=== PATIENT | female | born 1970 | race Caucasian/White ===

== ENCOUNTER 2016-07-14 11:52 | Emergency (ER) | payer MEDICAID, OTHER ==
[~2016-07-14] VITALS: Ht 167.6 cm; Wt 132.3 kg
[~2016-07-14 11:52] MED LIST: GABA400C5 PO; PERC7.5T13 PO; PROT40TA PO; RIVA15 PO; RIVA20 PO
[2016-07-14 11:58] VITALS: BP 140/86; PULSE 73; RESP 16; TEMP 98.2; O2SAT 97
[2016-07-14] MEDS ORDERED: XARE20TA PO (12:12)
[2016-07-14] MEDS ORDERED: PANT40TA3 PO (12:12)
[2016-07-14] MEDS ORDERED: GABA800T PO (12:12)
[2016-07-14] MEDS ORDERED: ALPR0.25 PO (12:12)
--- NOTE | 2016-07-14 12:14 | PD ---
HPI Chief Complaint: Musculoskeletal Complaint Time Seen by Provider: 12:13 Travel History International Travel<30 days: No Contact w/Intl Traveler<30days: No Traveled to known affect area: No History of Present Illness HPI 46 year old female with history of osteoarthritis, chronic left leg pain, DVTs, ON XARELTO presents to the ED for evaluation of left leg pain. Onset gradual. Worsened by ambulation. She endorses 10/10 pain from the knee to the ankle with mild, intermittent numbness of the foot. She denies back pain, weakness, giving way. Patient can identify no known trauma. She states that the pain is similar to previous episodes of leg pain. She was seen by her oncologist 07/10, had an US that ruled out DVT. No changes to the pain since the US. Denies fever, chills, edema, long periods of inactivity. She has not taken NSAIDS because she was warned to avoid them. She had a consultation with ortho who recommended joint replacement. She states that she has an appointment with her PCP next week. PFSH Past Medical History Hx Anticoagulant Therapy: Yes Arthritis: Yes (OSTEOARTHRITIS) Asthma: Yes ( A CHILD) Anxiety: Yes (XANAX PRN) Depression: No Heart Rhythm Problems: No Cancer: No Cardiovascular Problems: Yes (PALPITATIONS) High Cholesterol: No Chest Pain: No Congestive Heart Failure: No COPD: No Cerebrovascular Accident: Yes (2014 LEFT LEG, LEFT ARM) Diabetes: Yes (PRE DIABETIC 2013 DIET CONTROLLED) Patient Takes Glucophage: No Diminished Hearing: No Endocrine: Yes Gastrointestinal Disorders: Yes GERD: Yes Genitourinary: No Headaches: No Hiatal Hernia: No Hypertension: No Immune Disorder: No Implanted Vascular Access Dvce: No Musculoskeletal: Yes Neurologic: Yes (NEUROPATHY BILAT FEET) Psychiatric: Yes Reproductive: No Respiratory: Yes Immunizations Current: No Migraines: Yes Seizures: No Sleep Apnea: No Thyroid Disease: No Ulcer: No Tetanus Vaccination: < 5 Years Influenza Vaccination: No ?: Not Menopausal: Yes : 5 Para: 5 Ectopic : Yes Tubal Ligation: Yes Past Surgical History Abdominal Surgery: Yes (GALLBLADDER REMOVED) Cardiac Surgery: No Cholecystectomy: Yes Ear Surgery: No Endocrine Surgery: No Eye Surgery: No Genitourinary Surgery: No Gynecologic Surgery: Yes (HYSTERECTOMY, 2 D&C, TUBALIGATION) Hysterectomy: Yes Neurologic Surgery: No Oral Surgery: Yes (TONSILS REMOVED) Thoracic Surgery: No Tonsillectomy: Yes Other Surgery: Yes (ADHESIONS AND CERVIX REMOVAL NOV 2012) Social History Alcohol Use: No Tobacco Use: No (QUIT 2011- SMOKED HX OF 1 PPD) Substance Use: No Allergies-Medications (Allergen,Severity, Reaction): Coded Allergies: Anaprox (Unverified Allergy, Severe, Hives, 07/14/16) Clindamycin (Verified Allergy, Severe, HIVES, 07/14/16) Codeine (Verified Allergy, Severe, Anaphylaxis, 07/14/16) Contrast Media (Verified Allergy, Severe, Anaphylaxis, 07/14/16) Hydrocodone (Verified Allergy, Severe, nausea, 07/14/16) Seafood (Verified Allergy, Severe, Anaphylaxis, 07/14/16) Penicillin (Verified Allergy, Mild, HIVES, 07/14/16) Reported Meds & Prescriptions Reported Meds & Active Scripts Active Tramadol (Tramadol HCl) 50 Mg Tab 50 Mg PO Q6H PRN Reported Alprazolam 0.25 Mg Tab 0.25 Mg PO TID PRN Pantoprazole (Pantoprazole Sodium) 40 Mg Tab 40 Mg PO BID Xarelto (Rivaroxaban) 20 Mg Tab 20 Mg PO DAILY Gabapentin 800 Mg Tab 800 Mg PO TID Review of Systems Except as stated in HPI: all other systems reviewed are Neg Physical Exam Narrative GENERAL: Well-nourished, well-developed obese female in no acute distress. SKIN: Focused skin assessment warm/dry. HEAD: Normocephalic. EYES: No scleral icterus. No injection or drainage. NECK: Supple, trachea midline. No JVD or lymphadenopathy. CARDIOVASCULAR: Regular rate and rhythm without murmurs, gallops, or rubs. RESPIRATORY: Breath sounds equal bilaterally. No accessory muscle use. GASTROINTESTINAL: Abdomen soft, non-tender, nondistended. MUSCULOSKELETAL: No cyanosis, or edema. Patient is noted to walk with a normal gait. FOCUSED LEFT LOWER EXTREMITY EXAM: 2+ DP pulse. Equal in size as compared to right leg. TTP patella, joint lines. No popliteal TTP. Hohmann sign negative. Patient is able to extend the knee to 0 and flex beyond 90. Patient is able to flex and extend the ankle and toes. Varus/valgus stress testing elicits pain. 5/5 strength of dorsiflexion, plantar flexion, knee and hip flexion. Neurovascularly intact. BACK: Nontender without obvious deformity. No CVA tenderness. Data Data Last Documented VS Vital Signs Date Time Temp Pulse Resp B/P Pulse Ox O2 Delivery O2 Flow Rate FiO2 07/14/16 11:58 98.2 73 16 140/86 97 Orders Oxycodone-Acetamin 7.5-325 Mg (Percocet (07/14/16 12:45) MDM Medical Decision Making Medical Screen Exam Complete: Yes Emergency Medical Condition: Yes Differential Diagnosis Acute on chronic leg pain versus osteoarthritis versus DVT versus Narrative Course 46 year old female with history of osteoarthritis, chronic left leg pain, DVTs, ON XARELTO presents to the ED for evaluation of left leg pain. Onset gradual. Worsened by ambulation. She endorses 10/10 pain from the knee to the ankle with mild, intermittent numbness of the foot. She denies back pain, weakness, giving way. Patient can identify no known trauma. She states that the pain is similar to previous episodes of leg pain. She was seen by her oncologist 07/10, had an US that ruled out DVT. No changes to the pain since the US. Denies fever, chills, edema, long periods of inactivity. She has not taken NSAIDS because she was warned to avoid them. She had a consultation with ortho who recommended joint replacement. She states that she has an appointment with her PCP next week. Vitals reviewed. Physical exam revealed an obese female in no acute distress. Focused left lower extremity exam reveals 2+ DP pulse. Equal in size as compared to right leg. TTP patella, joint lines. No popliteal TTP. Hohmann sign negative. Patient is able to extend the knee to 0 and flex beyond 90. Patient is able to flex and extend the ankle and toes. Varus/valgus stress testing elicits pain. 5/5 strength of dorsiflexion, plantar flexion, knee and hip flexion. Neurovascularly intact. Review of the patient's record reveals similar complaints dating back to 2013. Very low suspicion for DVT. We'll treat for osteoarthritic pain. Patient was administered Percocet in the ED. She is prescribed a short course of tramadol, instructed to rest, ice, elevate the extremity, follow up with the primary care orthopedist as planned. She indicated understanding of instructions and is agreeable to the care plan. The patient is stable and discharged home. Diagnosis Primary Impression: Chronic pain of left lower extremity Referrals: Primary Care Physician Patient Instructions: General Instructions, Osteoarthritis (ED) Additional Instructions: Rest, ice, elevate the extremity. Apply ice no longer than 10-15 minutes per hour a few times a day. Tramadol 3 times a day as prescribed as needed for pain. Return to normal, gentle activity as tolerated. No running, jumping activities for the next few weeks. Follow up with orthopedist or your primary care provider as planned Return to the ED for any urgent or emergent medical condition. Med/Other Pt SpecificInfo: Prescription(s) given Scripts Tramadol 50 Mg Tab50 Mg PO Q6H PRN (PAIN) #15 TAB Ref 0 Prov:Scar Kelley MD 07/14/16 Disposition: 01 DISCHARGE HOME Condition: Stable Kayla Mitchell Jul 14, 2016 12:14
[2016-07-14] MEDS ORDERED: TRAM50TA PO (12:34)
[2016-07-14] MEDS ORDERED: oxyCODONE/ACETAMINOPHEN 7.5 MG/325 MG TAB PO ONE (12:45)
== END 2016-07-14 13:25 | disposition home or self-care (01) ==
LOC: PHEFT 11:52
DX: M79.605 Pain in left leg (principal); G89.29 Other chronic pain; R20.0 Anesthesia of skin; E11.9 Type 2 diabetes mellitus without complications; Z79.01 Long term (current) use of anticoagulants; Z86.718 Personal history of other venous thrombosis and embolism; Z87.39 Personal history of other diseases of the musculoskeletal system and connective tissue; Z87.09 Personal history of other diseases of the respiratory system; Z86.59 Personal history of other mental and behavioral disorders; Z86.79 Personal history of other diseases of the circulatory system; Z87.19 Personal history of other diseases of the digestive system; Z86.69 Personal history of other diseases of the nervous system and sense organs; Z87.891 Personal history of nicotine dependence
CPT/HCPCS: 99283

== ENCOUNTER 2016-09-22 12:06 | Emergency (ER) | payer SELFPAY ==
[~2016-09-22] VITALS: Ht 167.6 cm; Wt 136.9 kg
[~2016-09-22 12:06] MED LIST changes: +ALPR0.25 PO; -GABA400C5 PO; +GABA800T PO; +PANT40TA3 PO; -PERC7.5T13 PO; -PROT40TA PO; -RIVA15 PO; -RIVA20 PO; +TRAM50TA PO; +XARE20TA PO
[2016-09-22 12:15] VITALS: BP 134/95; PULSE 109; RESP 16; TEMP 98.2; O2SAT 97
[2016-09-22] MEDS ORDERED: GUAI100S5 PO ×2 (13:08→13:16)
--- NOTE | 2016-09-22 13:19 | PD ---
HPI Chief Complaint: Cold / Flu Symptoms Time Seen by Provider: 13:00 Travel History International Travel<30 days: No Contact w/Intl Traveler<30days: No Traveled to known affect area: No History of Present Illness HPI 46-year-old female presents to the emergency room for evaluation of cough, congestion, and sore throat for the past 3 weeks. Cough is nonproductive. Patient was seen initially 3 weeks ago for these symptoms and diagnosed with influenza. At that time she was having fevers as high as 103. She was prescribed cefdinir, Tessalon Perles, nasal spray, and prednisone. States her symptoms were persisting including the fevers of 103 so she went back to the doctor and they changed her antibiotic to Levaquin and added Estephania and Claritin. Patient finished antibiotic several days ago and has not had a fever for 6 days but states the cough and congestion are persisting. She has been using her prescriptions appropriately but symptoms are persisting. Rhinorrhea is clear and constant. States she has a mild sore throat from coughing so much and when she coughs her abdomen is spasming. She has been eating and drinking slightly less than normal. PFSH Past Medical History Hx Anticoagulant Therapy: Yes (XARELTO) Arthritis: Yes (OSTEOARTHRITIS) Asthma: Yes ( A CHILD) Anxiety: Yes Depression: No Heart Rhythm Problems: No Cancer: No High Cholesterol: No Chest Pain: No Congestive Heart Failure: No COPD: No Cerebrovascular Accident: Yes (2014 LEFT LEG, LEFT ARM) Diabetes: Yes (PRE) Patient Takes Glucophage: No Diminished Hearing: No Deep Vein Thrombosis: Yes (LEFT ARM, LEFT LEG) Endocrine: Yes Gastrointestinal Disorders: Yes GERD: Yes Genitourinary: No Headaches: No Hiatal Hernia: No Hypertension: No Immune Disorder: No Implanted Vascular Access Dvce: No Musculoskeletal: Yes Neurologic: Yes (NEUROPATHY BILAT FEET) Psychiatric: Yes Reproductive: No Respiratory: Yes Immunizations Current: No Migraines: Yes Seizures: No Sleep Apnea: No Thyroid Disease: No Ulcer: No Tetanus Vaccination: > 5 Years Influenza Vaccination: No ?: Not Menopausal: Yes : 5 Para: 5 Ectopic : Yes Tubal Ligation: Yes Past Surgical History Abdominal Surgery: Yes (GALLBLADDER REMOVED) Cardiac Surgery: No Cholecystectomy: Yes Ear Surgery: No Endocrine Surgery: No Eye Surgery: No Genitourinary Surgery: No Gynecologic Surgery: Yes (HYSTERECTOMY, 2 D&C, TUBALIGATION) Hysterectomy: Yes Neurologic Surgery: No Oral Surgery: Yes (TONSILS REMOVED) Thoracic Surgery: No Tonsillectomy: Yes Other Surgery: Yes (ADHESIONS AND CERVIX REMOVAL NOV 2012) Social History Alcohol Use: No Tobacco Use: No (QUIT 2012- SMOKED HX OF 1 PPD) Substance Use: No Allergies-Medications (Allergen,Severity, Reaction): Coded Allergies: Anaprox (Unverified Allergy, Severe, Hives, 09/22/16) Clindamycin (Verified Allergy, Severe, HIVES, 09/22/16) Codeine (Verified Allergy, Severe, Anaphylaxis, 09/22/16) Contrast Media (Verified Allergy, Severe, Anaphylaxis, 09/22/16) Hydrocodone (Verified Allergy, Severe, nausea, 09/22/16) Seafood (Verified Allergy, Severe, Anaphylaxis, 09/22/16) Penicillin (Verified Allergy, Mild, HIVES, 09/22/16) Reported Meds & Prescriptions Reported Meds & Active Scripts Active Guaifenesin-Codeine Liq 100-10 Mg/5 Ml Soln 5-10 Ml PO Q6H PRN Tramadol (Tramadol HCl) 50 Mg Tab 50 Mg PO Q6H PRN Reported Alprazolam 0.25 Mg Tab 0.25 Mg PO TID PRN Pantoprazole (Pantoprazole Sodium) 40 Mg Tab 40 Mg PO BID Xarelto (Rivaroxaban) 20 Mg Tab 20 Mg PO DAILY Gabapentin 800 Mg Tab 800 Mg PO TID Review of Systems Except as stated in HPI: all other systems reviewed are Neg Physical Exam Narrative GENERAL: Well-nourished, well-developed female in no acute distress. Afebrile. Ambulatory. SKIN: Focused skin assessment warm/dry. HEAD: Normocephalic. EYES: No scleral icterus. No injection or drainage. ENT: Mucosa pink and moist. No erythema or exudates. No uvular edema. No uvular , palatal, or tonsillar deviation. Airway patent. Nasal turbinates appear normal without nasal blood, purulent drainage or septal hematoma. EARS: Bilateral pinnae and external canals appear within normal limits. Bilateral tympanic membranes without erythema, dullness or perforation. NECK: Supple, trachea midline. No JVD or lymphadenopathy. CARDIOVASCULAR: Regular rate and rhythm without murmurs, gallops, or rubs. RESPIRATORY: Breath sounds equal bilaterally. No accessory muscle use. No crackles, rales, wheezes, or rhonchi. GASTROINTESTINAL: Abdomen soft, non-tender, nondistended. Data Data Last Documented VS Vital Signs Date Time Temp Pulse Resp B/P Pulse Ox O2 Delivery O2 Flow Rate FiO2 09/22/16 13:34 90 16 134/92 96 09/22/16 12:43 Room Air 09/22/16 12:15 98.2 [facility] Medical Decision Making Medical Screen Exam Complete: Yes Emergency Medical Condition: Yes Medical Record Reviewed: Yes Differential Diagnosis Upper respiratory infection, viral syndrome, influenza, bacterial infection Narrative Course 46-year-old female presents to the emergency room for evaluation of nonproductive cough, congestion, and sore throat for the past 3 weeks. Patient is afebrile and well-appearing in the emergency room. Vital signs stable. Resting comfortably in bed. Nontoxic appearing. Coughing occasionally. Cough is nonproductive. Lung sounds clear and equal bilaterally. She has been on 2 courses of antibiotics over the past 3 weeks without resolution of symptoms because etiology is likely viral. She states symptoms started off with positive diagnosis of flu and have been persisting since then. Rhinorrhea is clear. No indication for more antibiotics. Patient was told to continue symptomatic treatment with antihistamines. Patient denies true allergy to codeine, states it makes her stomach hurt but it is okay if she takes it with milk. She will be discharged with cough medication and told to follow up with a primary care physician or return for worsening symptoms. She understands and agrees to plan. Diagnosis Primary Impression: Upper respiratory infection Qualified Code: J00 - Acute nasopharyngitis Referrals: Primary Care Physician Patient Instructions: General Instructions, Upper Respiratory Infection (ED) Additional Instructions: Rest and drink plenty of fluids. Take cough medicine as directed, as needed for pain. Do not drink alcohol or drive while taking this medication. Do not take this medication with your alprazolam. Continue with [id number] cough and cold medications including nasal sprays , Kita [place], and antihistamines. Follow-up with a primary care physician. Return to the emergency room for worsening symptoms. Med/Other Pt SpecificInfo: Prescription(s) given Scripts Guaifenesin-Codeine Liq 100-10 Mg/5 Ml Soln5-10 Ml PO Q6H PRN (COUGH) #100 BOTTLE Ref 0 Prov:Cameron Kiran MD 09/22/16 Disposition: 01 DISCHARGE HOME Condition: Stable Sandra Villavicencio Sep 22, 2016 13:19
[2016-09-22 13:34] VITALS: BP 134/92
== END 2016-09-22 13:35 | disposition home or self-care (01) ==
LOC: PHEFT 12:06
DX: J06.9 Acute upper respiratory infection, unspecified (principal); E11.9 Type 2 diabetes mellitus without complications; Z87.891 Personal history of nicotine dependence; Z79.01 Long term (current) use of anticoagulants
CPT/HCPCS: 99283

== ENCOUNTER 2016-10-29 18:00 | Emergency (ER) | payer OTHER ==
[~2016-10-29] VITALS: Ht 167.6 cm; Wt 138.0 kg
[~2016-10-29 18:00] MED LIST changes: +GUAI100S5 PO
[2016-10-29 18:06] VITALS: BP 111/72; PULSE 104; RESP 16; TEMP 98; O2SAT 96
--- NOTE | 2016-10-29 18:35 | PD ---
HPI Chief Complaint: Headache Time Seen by Provider: 18:14 Travel History International Travel<30 days: No Contact w/Intl Traveler<30days: No Traveled to known affect area: No History of Present Illness HPI This patient complains of cough and congestion and runny nose for the last 2 months. No fever. Has not seen her physician for it. No alleviating factors. Symptoms severity is mild to moderate. She is not short of breath or having chest pain PFSH Past Medical History Hx Anticoagulant Therapy: Yes (XARELTO) Arthritis: Yes (OSTEOARTHRITIS) Asthma: Yes ( A CHILD) Anxiety: Yes Depression: No Heart Rhythm Problems: No Cancer: No High Cholesterol: No Chest Pain: No Congestive Heart Failure: No COPD: No Cerebrovascular Accident: Yes (2014 LEFT LEG, LEFT ARM) Diabetes: Yes (PRE) Patient Takes Glucophage: No Diminished Hearing: No Deep Vein Thrombosis: Yes (LEFT ARM, LEFT LEG) Endocrine: Yes Gastrointestinal Disorders: Yes GERD: Yes Genitourinary: No Headaches: No Hiatal Hernia: No Hypertension: No Immune Disorder: No Implanted Vascular Access Dvce: No Musculoskeletal: Yes Neurologic: Yes (NEUROPATHY BILAT FEET) Psychiatric: Yes Reproductive: No Respiratory: Yes Immunizations Current: No Migraines: Yes Seizures: No Sleep Apnea: No Thyroid Disease: No Ulcer: No Influenza Vaccination: No ?: Not Menopausal: Yes : 5 Para: 5 Ectopic : Yes Tubal Ligation: Yes Past Surgical History Abdominal Surgery: Yes (GALLBLADDER REMOVED) Cardiac Surgery: No Cholecystectomy: Yes Ear Surgery: No Endocrine Surgery: No Eye Surgery: No Genitourinary Surgery: No Gynecologic Surgery: Yes (HYSTERECTOMY, 2 D&C, TUBALIGATION) Hysterectomy: Yes Neurologic Surgery: No Oral Surgery: Yes (TONSILS REMOVED) Thoracic Surgery: No Tonsillectomy: Yes Other Surgery: Yes (ADHESIONS AND CERVIX REMOVAL NOV 2012) Social History Alcohol Use: No Tobacco Use: No (QUIT 2012- SMOKED HX OF 1 PPD) Substance Use: No Allergies-Medications (Allergen,Severity, Reaction): Coded Allergies: Anaprox (Unverified Allergy, Severe, Hives, 10/29/16) Clindamycin (Verified Allergy, Severe, HIVES, 10/29/16) Codeine (Verified Allergy, Severe, Anaphylaxis, 10/29/16) Contrast Media (Verified Allergy, Severe, Anaphylaxis, 10/29/16) Hydrocodone (Verified Allergy, Severe, nausea, 10/29/16) Seafood (Verified Allergy, Severe, Anaphylaxis, 10/29/16) Penicillin (Verified Allergy, Mild, HIVES, 10/29/16) Reported Meds & Prescriptions Reported Meds & Active Scripts Active Reported Pantoprazole (Pantoprazole Sodium) 40 Mg Tab 40 Mg PO BID Xarelto (Rivaroxaban) 20 Mg Tab 20 Mg PO DAILY Gabapentin 800 Mg Tab 800 Mg PO TID Review of Systems General / Constitutional: No: Fever HENT: No: Headaches Cardiovascular: No: Chest Pain or Discomfort Respiratory: Positive: Cough Physical Exam Narrative GENERAL: Well-nourished, well-developed patient in no apparent distress. SKIN: Focused skin assessment reveals no rash and nodules. Skin is Warm and dry. HEAD: Atraumatic. Normocephalic. EYES: Pupils equal and round. No scleral icterus. No injection or drainage. ENT: No nasal bleeding or discharge. Mucous membranes pink and moist. Nares shows clear rhinorrhea, TMs normal and throat clear NECK: Trachea midline. No JVD. CARDIOVASCULAR: Regular rate and rhythm. No murmur appreciated. RESPIRATORY: No accessory muscle use. Clear to auscultation. Breath sounds equal bilaterally. GASTROINTESTINAL: Abdomen soft, non-tender, nondistended. Hepatic and splenic margins not palpable. MUSCULOSKELETAL: No obvious deformities. No clubbing. No cyanosis. No edema. NEUROLOGICAL: Awake and alert. No obvious cranial nerve deficits. Motor grossly within normal limits. Normal speech. PSYCHIATRIC: Appropriate mood and affect; insight and judgment normal. Data Data Last Documented VS Vital Signs Date Time Temp Pulse Resp B/P Pulse Ox O2 Delivery O2 Flow Rate FiO2 10/29/16 18:06 98.0 104 16 111/72 96 MDM Medical Decision Making Medical Screen Exam Complete: Yes Emergency Medical Condition: Yes Medical Record Reviewed: Yes Differential Diagnosis Viral syndrome, bronchitis, URI, allergic rhinitis Narrative Course I have reviewed the patient's electronic medical record. Patient looks clinically well with normal vital signs and normal exam other than some clear nasal discharge and dry cough Stable for outpatient follow-up Supportive care discussed Diagnosis Primary Impression: Viral syndrome Additional Impression: Persistent cough for 3 weeks or longer Additional Instructions: The patient was advised to follow up with their physician and return if they worsen. Med/Other Pt SpecificInfo: Other Disposition: 01 DISCHARGE HOME Condition: Stable Scar Kelley MD Oct 29, 2016 18:35
== END 2016-10-29 19:09 | disposition home or self-care (01) ==
LOC: PHED 18:00
DX: B34.9 Viral infection, unspecified (principal)
CPT/HCPCS: 99281

== ENCOUNTER 2016-12-28 18:25 | Emergency (ER) | payer MEDICAID, OTHER ==
[~2016-12-28] VITALS: Ht 167.6 cm; Wt 134.5 kg
[~2016-12-28 18:25] MED LIST changes: -ALPR0.25 PO; -GUAI100S5 PO; -TRAM50TA PO
[2016-12-28 18:30] VITALS: BP 108/60; PULSE 110; RESP 18; TEMP 99.4; O2SAT 97
--- NOTE | 2016-12-28 18:54 | PD ---
HPI Chief Complaint: Edema Time Seen by Provider: 18:44 Travel History International Travel<30 days: No Contact w/Intl Traveler<30days: No Traveled to known affect area: No History of Present Illness HPI 46-year-old female with history of DVT here for evaluation of bilateral leg pain and swelling. Patient reports that she was admitted to [facility] last month and was discharged on 12/05/16. At that time she had had a lumbar puncture looking for meningitis that resulted in a CSF leak. She was off of her anticoagulation at that time and was restarted once discharged. Over the last 4 days she has been having increasing bilateral lower extremity edema with increasing pain behind her right calf making it difficult for her to walk. No trauma. No chest pain or dyspnea. PFSH Past Medical History Hx Anticoagulant Therapy: Yes (Xarelto ) Arthritis: Yes (OSTEOARTHRITIS) Asthma: Yes ( A CHILD) Anxiety: Yes Depression: No Heart Rhythm Problems: No Cancer: No Cardiovascular Problems: Yes (DVT's) High Cholesterol: No Chest Pain: No Congestive Heart Failure: No COPD: No Cerebrovascular Accident: Yes (2014 LEFT LEG, LEFT ARM) Diabetes: Yes (Pre-) Diminished Hearing: No Deep Vein Thrombosis: Yes (LEFT ARM, LEFT LEG) Endocrine: Yes Gastrointestinal Disorders: Yes GERD: Yes Genitourinary: No Headaches: No Hiatal Hernia: No Hypertension: No Immune Disorder: No Implanted Vascular Access Dvce: No Musculoskeletal: Yes Neurologic: Yes (NEUROPATHY BILAT FEET) Psychiatric: Yes Reproductive: No Respiratory: Yes Immunizations Current: No Migraines: Yes Seizures: No Sleep Apnea: No Thyroid Disease: No Ulcer: No ?: Not Menopausal: Yes : 5 Para: 5 Ectopic : Yes Tubal Ligation: Yes Past Surgical History Abdominal Surgery: Yes (GALLBLADDER REMOVED) Cardiac Surgery: No Cholecystectomy: Yes Ear Surgery: No Endocrine Surgery: No Eye Surgery: No Genitourinary Surgery: No Gynecologic Surgery: Yes (HYSTERECTOMY, 2 D&C, TUBALIGATION) Hysterectomy: Yes Neurologic Surgery: No Oral Surgery: Yes (TONSILS REMOVED) Thoracic Surgery: No Tonsillectomy: Yes Other Surgery: Yes (ADHESIONS AND CERVIX REMOVAL NOV 2012) Social History Alcohol Use: No Tobacco Use: No (QUIT 2012- SMOKED HX OF 1 PPD) Substance Use: No Allergies-Medications (Allergen,Severity, Reaction): Coded Allergies: Fish Containing Products (Unverified Allergy, Severe, Anaphylaxis, 12/28/16 ) clindamycin (Unverified Allergy, Severe, HIVES, 12/28/16) codeine (Unverified Allergy, Severe, Anaphylaxis, 12/28/16) diatrizoate meglumine (Unverified Allergy, Severe, Anaphylaxis, 12/28/16) gadobenic acid (Unverified Allergy, Severe, Anaphylaxis, 12/28/16) gadodiamide (Unverified Allergy, Severe, Anaphylaxis, 12/28/16) gadoteridol (Unverified Allergy, Severe, Anaphylaxis, 12/28/16) hydrocodone (Unverified Allergy, Severe, nausea, 12/28/16) iodixanol (Unverified Allergy, Severe, Anaphylaxis, 12/28/16) iohexol (Unverified Allergy, Severe, Anaphylaxis, 12/28/16) naproxen (Unverified Allergy, Severe, Hives, 12/28/16) penicillin G (Unverified Allergy, Mild, HIVES, 12/28/16) morphine (Verified Adverse Reaction, Severe, "Stomachache", 12/28/16) Reported Meds & Prescriptions Reported Meds & Active Scripts Active Reported Pantoprazole (Pantoprazole Sodium) 40 Mg Tab 40 Mg PO BID Xarelto (Rivaroxaban) 20 Mg Tab 20 Mg PO DAILY Gabapentin 800 Mg Tab 800 Mg PO TID Review of Systems Except as stated in HPI: all other systems reviewed are Neg Physical Exam Narrative GENERAL: Well-developed, well-nourished, overweight, comfortable, no apparent distress. SKIN: Focused skin assessment warm/dry. HEAD: Atraumatic. Normocephalic. EYES: Pupils equal and round. No scleral icterus. No injection or drainage. ENT: Mucous membranes pink and moist. NECK: Trachea midline. No JVD. CARDIOVASCULAR: Regular rate and rhythm. RESPIRATORY: No accessory muscle use. Clear to auscultation. Breath sounds equal bilaterally. GASTROINTESTINAL: Abdomen soft, non-tender, nondistended. MUSCULOSKELETAL: No obvious deformities. No clubbing. No cyanosis. Mild bilateral lower extremity edema. Bilateral calves are supple. Right calf is mildly tender. Normal range of motion in all joints and extremities. NEUROLOGICAL: Awake and alert. No obvious cranial nerve deficits. Motor grossly within normal limits. Normal speech. PSYCHIATRIC: Appropriate mood and affect; insight and judgment normal. Data Data Last Documented VS Vital Signs Date Time Temp Pulse Resp B/P (MAP) Pulse Ox O2 Delivery O2 Flow Rate FiO2 12/28/16 19:33 18 98 12/28/16 19:32 111 134/87 (103) Room Air 12/28/16 18:30 99.4 Orders Orders Complete Blood Count With Diff (12/28/16 18:48) Comprehensive Metabolic Panel (12/28/16 18:48) Prothrombin Time / Inr (Pt) (12/28/16 18:48) Act Partial Throm Time (Ptt) (12/28/16 18:48) Iv Access Insert/Monitor (12/28/16 18:48) Ecg Monitoring (12/28/16 18:48) Oximetry (12/28/16 18:48) Sodium Chloride 0.9% Flush (Ns Flush) (12/28/16 19:00) Us Leg Venous Doppler Bilat (12/28/16 ) Oxycodone-Acetamin 10-325 Mg (Percocet 1 (12/28/16 20:30) Rivaroxaban (Xarelto) (12/28/16 20:30) Labs Laboratory Tests Test 12/28/16 19:24 12/28/16 20:19 White Blood Count 5.4 TH/MM3 Red Blood Count 3.90 MIL/MM3 Hemoglobin 11.1 GM/DL Hematocrit 34.3 % Mean Corpuscular Volume 88.0 FL Mean Corpuscular Hemoglobin 28.5 PG Mean Corpuscular Hemoglobin Concent 32.4 % Red Cell Distribution Width 13.3 % Platelet Count 241 TH/MM3 Mean Platelet Volume 8.9 FL Neutrophils (%) (Auto) 56.2 % Lymphocytes (%) (Auto) 27.4 % Monocytes (%) (Auto) 12.0 % Eosinophils (%) (Auto) 3.5 % Basophils (%) (Auto) 0.9 % Neutrophils # (Auto) 3.1 TH/MM3 Lymphocytes # (Auto) 1.5 TH/MM3 Monocytes # (Auto) 0.6 TH/MM3 Eosinophils # (Auto) 0.2 TH/MM3 Basophils # (Auto) 0.0 TH/MM3 CBC Comment DIFF FINAL Differential Comment Prothrombin Time 11.5 SEC Prothromb Time International Ratio 1.0 RATIO Activated Partial Thromboplast Time 27.3 SEC Blood Urea Nitrogen 8 MG/DL Creatinine 0.76 MG/DL Random Glucose 86 MG/DL Total Protein 7.9 GM/DL Albumin 3.6 GM/DL Calcium Level 9.0 MG/DL Alkaline Phosphatase 92 U/L Aspartate Amino Transf (AST/SGOT) 21 U/L Alanine Aminotransferase (ALT/SGPT) 28 U/L Total Bilirubin 0.4 MG/DL Sodium Level 139 MEQ/L Potassium Level 3.6 MEQ/L Chloride Level 106 MEQ/L Carbon Dioxide Level 24.5 MEQ/L Anion Gap 9 MEQ/L Estimat Glomerular Filtration Rate 83 ML/MIN [facility] Medical Decision Making Medical Screen Exam Complete: Yes Emergency Medical Condition: Yes Differential Diagnosis DVT, muscular pain, fluid overload, Pacheco cyst Narrative Course Initial vital signs show heart rate 110, blood pressure 108/60, pulse ox 97% on room air, oral temp of 99.4F. Repeat heart rate is 93 without any intervention. CBC shows WBC 5.4, hemoglobin 11.1, hematocrit 34.3, platelets 241. CMP is unremarkable. Bilateral lower extremity duplex: CONCLUSION: 1. Incomplete compression of the distal right femoral vein suggesting nonocclusive thrombus, acute or chronic. 2. Remaining veins of both lower extremities are patent. Case discussed with the patient's office services associate Dr. Perez. Although the patient has been taking 20 mg of Xarelto daily for the last 3 weeks, she is likely subtherapeutic, and plan at this time is to have her take 15 mg twice daily for 21 days, then restart her 20 mg daily. Follow-up in his office in the next 1-2 weeks. Patient is amenable to this plan. She was informed on when to return to the emergency department. Diagnosis Primary Impression: Right leg DVT Qualified Codes: I82.411 - Acute embolism and thrombosis of right femoral vein Referrals: Grayson Davey MD 1 week Additional Instructions: Follow-up with Dr. Perez in the next 1-2 weeks. Take Xarelto 15 mg twice daily for the next 21 days, then 20 mg daily. Return to the emergency department for worsening symptoms or any other concerns. Scripts Oxycodone-Acetaminophen (Percocet) 10-325 mg Tab 1 TAB PO Q6H Y for PAIN, #15 TAB 0 Refills Prov: Cameron Kiran MD 12/28/16 Rivaroxaban (Xarelto) 15 Mg Tab 15 MG PO Q12HR for Blood Clot Prevention for 21 Days, TAB 0 Refills Prov: Cameron Kiran MD 12/28/16 Disposition: 01 DISCHARGE HOME Condition: Stable Cameron Kiran MD Dec 28, 2016 18:54
[2016-12-28] MEDS ORDERED: SODIUM CHLORIDE 0.9% FLUSH 10 ML FLUSH IV FLUSH PRN (19:00)
[2016-12-28 19:31] LABS: AUTOMATED NEUTROPHIL # 3.1 TH/MM3 (1.8-7.7); BASOPHIL % 0.9 % (0.0-2.0); EOSINOPHIL # 0.2 TH/MM3 (0-0.4); EOSINOPHIL % 3.5 % (0.0-4.0); HEMATOCRIT 34.3 % (35.0-46.0); HEMO FLAGS DIFF FINAL; LYMPH % 27.4 % (9.0-44.0); LYMPHOCYTE # 1.5 TH/MM3 (1.0-4.8); MEAN CORPUSCULAR HEMOGLOBIN 28.5 PG (27.0-34.0); MEAN CORPUSCULAR HGB CONC 32.4 % (32.0-36.0); NEUT % 56.2 % (16.0-70.0); PLATELET COUNT 241 TH/MM3 (150-450); RED CELL DISTRIBUTION WIDTH 13.3 % (11.6-17.2); WHITE BLOOD COUNT 5.4 TH/MM3 (4.0-11.0)
[2016-12-28 19:32] VITALS: BP 134/87; PULSE 111; RESP 18; O2SAT 98
--- NOTE | 2016-12-28 19:35 | RADRPT ---
EXAM DATE/TIME: 12/28/2016 19:12 [facility] COMPARISON: US LEG LEFT VENOUS DOPPLER, August 29, 2014, 1:29. INDICATIONS : Bilateral leg pain and swelling. MEDICAL HISTORY : DVT. CVA. SURGICAL HISTORY : Tonsillectomy.Hysterectomy. Tubal ligation.D&C. ENCOUNTER: [facility] ACUITY: 3 weeks PAIN SCORE: 10/10 LOCATION: Bilateral leg. TECHNIQUE: Venous ultrasound of the left and right leg was performed from the inguinal ligament to the proximal calf. Real-time, color Doppler and spectral tracing, compression and augmentation techniques were us ed. FINDINGS: RIGHT LEG: There is incomplete compression of the distal femoral vein with normal blood flow. Remaining vessels of the left lower extremity are normal. LEFT LEG: There is normal compressibility of the deep venous system from the inguinal region to the proximal ca lf. No echogenic clot is seen in the lumen of the common femoral, femoral, popliteal, and posterior tibial veins. There is a normal response of the venous system to proximal and distal augmentation an d respiration. CONCLUSION: 1. Incomplete compression of the distal right femoral vein suggesting nonocclusive thrombus, acute or chronic. 2. Remaining veins of both lower extremities are patent. Garett Marquez MD on December 28, 2016 at 19:31 Board Certified Radiologist. This report was verified electronically.
[2016-12-28] MEDS ORDERED: RIVAROXABAN 15 MG TAB PO ONE (20:30)
[2016-12-28] MEDS ORDERED: oxyCODONE/ACETAMINOPHEN 10 MG/325 MG TAB PO ONE (20:30)
[2016-12-28 20:36] LABS: CHLORIDE 106 MEQ/L (98-107); POTASSIUM 3.6 MEQ/L (3.5-5.1); SODIUM (NA) 139 MEQ/L (136-145)
[2016-12-28 20:39] LABS: ANION GAP 9 MEQ/L (5-15); BICARBONATE 24.5 MEQ/L (21.0-32.0)
[2016-12-28 20:40] LABS: APTT (PATIENT) 27.3 SEC (24.3-30.1); BLOOD UREA NITROGEN 8 MG/DL (7-18); PROTHROMBIN TIME - PATIENT 11.5 SEC (9.8-11.6)
[2016-12-28 20:42] LABS: ALT (GPT) 28 U/L (10-53); AST (GOT) 21 U/L (15-37); GLOMERULAR FILTRATION RATE 83 ML/MIN (>89)
[2016-12-28 20:44] LABS: TOTAL BILIRUBIN ADULT 0.4 MG/DL (0.2-1.0)
[2016-12-28 20:45] LABS: ALKALINE PHOSPHATASE 92 U/L (45-117)
[2016-12-28] MEDS ORDERED: XARE15TA PO (20:54)
[2016-12-28] MEDS ORDERED: PERC10TA27 PO (20:54)
[2016-12-28 21:10] VITALS: BP 121/57
[2016-12-28] MEDS ORDERED: ALPR0.25 PO (22:11)
== END 2016-12-28 21:34 | disposition home or self-care (01) ==
LOC: PHED 18:25
DX: I82.411 Acute embolism and thrombosis of right femoral vein (principal); E11.9 Type 2 diabetes mellitus without complications; K21.9 Gastro-esophageal reflux disease without esophagitis; Z79.01 Long term (current) use of anticoagulants; Z86.73 Personal history of transient ischemic attack (TIA), and cerebral infarction without residual deficits; Z87.891 Personal history of nicotine dependence
CPT/HCPCS: 80053; 85025; 85610; 85730; 93970

== ENCOUNTER 2017-06-12 13:17 | Emergency (ER) | payer MEDICAID ==
[~2017-06-12] VITALS: Ht 167.6 cm; Wt 136.0 kg
[~2017-06-12 13:17] MED LIST changes: +ALPR0.25 PO; +PERC10TA27 PO; +XARE15TA PO
[2017-06-12 13:23] VITALS: BP 130/82; PULSE 104; RESP 16; TEMP 97.5; O2SAT 97
[2017-06-12] MEDS ORDERED: oxyCODONE/ACETAMINOPHEN 5 MG/325 MG TAB PO ONE (13:45)
--- NOTE | 2017-06-12 14:29 | RADRPT ---
EXAM DATE/TIME: 06/12/2017 13:57 [facility] COMPARISON: No previous studies available for comparison. INDICATIONS : Left knee pain, no known injury MEDICAL HISTORY : None. SURGICAL HISTORY : None. ENCOUNTER: Initial ACUITY: 1 week PAIN SCORE: 10/10 LOCATION: Left knee FINDINGS: 4 views left knee. Small tricompartmental osteophytes. No evidence of joint narrowing. Mild subchondr al sclerosis medial femoral condyle. No evidence of fracture. No evidence of joint effusion. Alignmen t within normal limits. CONCLUSION: Mild osteoarthritic findings of the knee. Adrián Joseph MD on June 12, 2017 at 14:27 Board Certified Radiologist. This report was verified electronically.
[2017-06-12] MEDS ORDERED: PRED20 PO (14:36)
[2017-06-12] MEDS ORDERED: TRAM50TA PO (14:36)
--- NOTE | 2017-06-12 14:43 | PD ---
HPI Chief Complaint: Musculoskeletal Complaint Time Seen by Provider: 13:27 Travel History International Travel<30 days: No Contact w/Intl Traveler<30days: No Traveled to known affect area: No History of Present Illness HPI 46-year-old female that presents to the ED for evaluation of left knee pain and swelling. Per patient she's had this on and off for the past 4 years. Per patient she follows a pain management and her pain management doctor told her in [place] that she may need an MRI for evaluation of possible torn meniscus. She states that the pain did improve somewhat but she never got the MRI because she moved here to get legal custody of one of her nephews. Per patient she is in the process of moving back to [place] but she states that for the past and they she's been having more pain and swelling on her left knee. Denies any other medical issue. She does have a history of blood clots but states that this feels completely different. She takes her Xarelto as prescribed. She has no other medical issues at this time. She cannot take any NSAIDs because of the Xarelto as well as secondary to allergies. Denies any other medical issues. No falls or injuries. Pain is 8 out of 10. PFSH Past Medical History Hx Anticoagulant Therapy: Yes (Xarelto ) Arthritis: Yes (OSTEOARTHRITIS) Asthma: Yes ( A CHILD) Anxiety: Yes Depression: No Heart Rhythm Problems: No Cancer: No Cardiovascular Problems: Yes (DVT's) High Cholesterol: No Chest Pain: No Congestive Heart Failure: No COPD: No Cerebrovascular Accident: Yes (2014 LEFT LEG, LEFT ARM) Diabetes: Yes (Pre-) Patient Takes Glucophage: No Diminished Hearing: No Deep Vein Thrombosis: Yes (LEFT ARM, LEFT LEG) Endocrine: Yes Gastrointestinal Disorders: Yes GERD: Yes Genitourinary: No Headaches: No Hiatal Hernia: No Hypertension: No Immune Disorder: No Implanted Vascular Access Dvce: No Musculoskeletal: Yes Neurologic: Yes (NEUROPATHY BILAT FEET) Psychiatric: Yes Reproductive: No Respiratory: Yes Immunizations Current: No Migraines: Yes Seizures: No Sleep Apnea: No Thyroid Disease: No Ulcer: No ?: Not Menopausal: Yes : 5 Para: 5 Ectopic : Yes Tubal Ligation: Yes Past Surgical History Abdominal Surgery: Yes (GALLBLADDER REMOVED) Cardiac Surgery: No Cholecystectomy: Yes Ear Surgery: No Endocrine Surgery: No Eye Surgery: No Genitourinary Surgery: No Gynecologic Surgery: Yes (HYSTERECTOMY, 2 D&C, TUBALIGATION) Hysterectomy: Yes Neurologic Surgery: No Oral Surgery: Yes (TONSILS REMOVED) Thoracic Surgery: No Tonsillectomy: Yes Other Surgery: Yes (ADHESIONS AND CERVIX REMOVAL NOV 2012) Social History Alcohol Use: No Tobacco Use: No (QUIT 2013- SMOKED HX OF 1 PPD) Substance Use: No Allergies-Medications (Allergen,Severity, Reaction): Coded Allergies: Fish Containing Products (Unverified Allergy, Severe, Anaphylaxis, 06/12/17 ) clindamycin (Unverified Allergy, Severe, HIVES, 06/12/17) codeine (Unverified Allergy, Severe, Anaphylaxis, 06/12/17) diatrizoate meglumine (Unverified Allergy, Severe, Anaphylaxis, 06/12/17) gadobenic acid (Unverified Allergy, Severe, Anaphylaxis, 06/12/17) gadodiamide (Unverified Allergy, Severe, Anaphylaxis, 06/12/17) gadoteridol (Unverified Allergy, Severe, Anaphylaxis, 06/12/17) hydrocodone (Unverified Allergy, Severe, nausea, 06/12/17) iodixanol (Unverified Allergy, Severe, Anaphylaxis, 06/12/17) iohexol (Unverified Allergy, Severe, Anaphylaxis, 06/12/17) naproxen (Unverified Allergy, Severe, Hives, 06/12/17) penicillin G (Unverified Allergy, Mild, HIVES, 06/12/17) morphine (Verified Adverse Reaction, Severe, "Stomachache", 06/12/17) Reported Meds & Prescriptions Reported Meds & Active Scripts Active Tramadol (Tramadol HCl) 50 Mg Tab 50 Mg PO Q6H PRN Prednisone 20 Mg Tab 20 Mg PO BID 5 Days Reported Pantoprazole (Pantoprazole Sodium) 40 Mg Tab 40 Mg PO BID Xarelto (Rivaroxaban) 20 Mg Tab 20 Mg PO DAILY Gabapentin 800 Mg Tab 800 Mg PO TID Review of Systems Except as stated in HPI: all other systems reviewed are Neg Physical Exam Narrative GENERAL: SKIN: Warm and dry. HEAD: Atraumatic. Normocephalic. EYES: Pupils equal and round. No scleral icterus. No injection or drainage. ENT: No nasal bleeding or discharge. Mucous membranes pink and moist. NECK: Trachea midline. No JVD. CARDIOVASCULAR: Regular rate and rhythm. RESPIRATORY: No accessory muscle use. Clear to auscultation. Breath sounds equal bilaterally. GASTROINTESTINAL: Abdomen soft, non-tender, nondistended. Hepatic and splenic margins not palpable. MUSCULOSKELETAL: Extremities without clubbing, cyanosis, or edema. No obvious deformities. Patient has her producible pain to range of motion of the left hip. Soft tissue swelling noted compared to the right. 2+ pulses bilaterally. Neurovascularly intact. Pain more with bending. Patient does have a slight limp on the left side but minimal. NEUROLOGICAL: Awake and alert. No obvious cranial nerve deficits. Motor grossly within normal limits. Five out of 5 muscle strength in the arms and legs. Normal speech. PSYCHIATRIC: Appropriate mood and affect; insight and judgment normal. Data Data Last Documented VS Vital Signs Date Time Temp Pulse Resp B/P (MAP) Pulse Ox O2 Delivery O2 Flow Rate FiO2 06/12/17 13:23 97.5 104 16 130/82 (98) 97 Orders Orders Oxycodone-Acetamin 5-325 Mg (Percocet (06/12/17 13:45) Knee, Complete (4vws) (06/12/17 ) [facility] Medical Decision Making Medical Screen Exam Complete: Yes Emergency Medical Condition: Yes Medical Record Reviewed: Yes Interpretation(s) Last Impressions Knee X-Ray 06/12/17 0000 Signed Impressions: Service Date/Time: Monday, June 12, 2017 13:57 - CONCLUSION: Mild osteoarthritic findings of the knee. Adrián Joseph MD Differential Diagnosis Osteoarthritis versus chronic pain versus internal derangement of the knee Narrative Course 46-year-old female that presents to the ED for evaluation of left knee pain with no injury. Patient was properly examined and was found to have signs and symptoms consistent appears to be Chronic Pain. Patient Has Had This Pain for Years. Per Patient She Falls with a Pain Management at [place] and states that she already has a scheduled to get an MRI. X-ray was ordered here to any sign of acute bony injury. Patient was reassured. X-ray was negative. Patient does have a lot of ostheoarthritis. I do recommend close follow with the pain management for further eval as well as MRI as his doctor wanted. Patient was given a short prescription for tramadol and prednisone to help with her pain. She understands that she needs to follow-up outpatient. See ED worsening symptoms. Diagnosis Primary Impression: Knee pain Qualified Codes: M25.562 - Pain in left knee; G89.29 - Other chronic pain Patient Instructions: General Instructions, Narcotic given in the ED Additional Instructions: Take medications as prescribed. Follow-up with PCP or ortho for further eval including MRI and ortho referal. See ED for any worsening symptoms. Do not drink or drive while taking pain medication. Apply ice or heat as needed for pain Med/Other Pt SpecificInfo: Prescription(s) given Scripts Tramadol (Tramadol) 50 Mg Tab 50 MG PO Q6H Y for PAIN, #14 TAB 0 Refills Prov: Sulaiman Chun MD 06/12/17 Prednisone (Prednisone) 20 Mg Tab 20 MG PO BID for 5 Days, #10 TAB 0 Refills Prov: Sulaiman Chun MD 06/12/17 Disposition: 01 DISCHARGE HOME Condition: Stable Johnathon Walker Jun 12, 2017 14:43
== END 2017-06-12 14:55 | disposition home or self-care (01) ==
LOC: PHEFT 13:17
DX: M25.562 Pain in left knee (principal); G89.29 Other chronic pain; R22.42 Localized swelling, mass and lump, left lower limb; M19.90 Unspecified osteoarthritis, unspecified site; E11.9 Type 2 diabetes mellitus without complications; K21.9 Gastro-esophageal reflux disease without esophagitis; G62.9 Polyneuropathy, unspecified; Z79.01 Long term (current) use of anticoagulants; Z86.718 Personal history of other venous thrombosis and embolism; Z87.19 Personal history of other diseases of the digestive system
CPT/HCPCS: 73564; 99283